=== PATIENT | male | born 1955 | race Caucasian/White ===

== ENCOUNTER 2017-11-11 12:45 | Day surgery (SDC) | payer OTHER ==
[~2017-11-11] VITALS: Ht 198.1 cm; Wt 115.7 kg
[~2017-11-11 12:45] MED LIST: ASPIR 8181 MG PO; ATORVASTATIN CA40 MG PO; CLARITIN10 M2 PO; FLOMAX0.4 MG PO; HYDROCODON-ACE1 EA10 PO; LEVOCETIRIZINE D5 MG PO; LEVOTHYROXINE50 MCG PO; LOVENOX40 MG SUB-Q; METOPROLOL SUCC25 MG PO; NORCO 5-325 TA1 EACH PO; OXYBUTYNIN CHLOR5 MG PO; SENNOSIDES-DOC1 EACH PO; TAMSULOSIN HCL0.4 MG PO; VITAMIN D1000 UNIT PO; VITAMIN D35000 UNI1 PO; VITAMIN D50000 UNI1 PO
--- NOTE | 2017-11-11 14:57 | NUR ---
11/11/17 1457 Peggy Mcmullen 1449- PT ARRIVES TO PACU, EASILY AROUSABLE TO VOICE. REPORTS NO PAIN OR NAUSEA. PT RIGHT BACK TO SLEEP.
--- NOTE | 2017-11-12 07:31 | OR ---
[facility] [address], [place] [address] Signed DATE OF OPERATION: 11/11/2017 SURGEON: Bartolo Lee MD PREOPERATIVE DIAGNOSES: 1. Colon screening. 2. Concurrent chronic hydrocephalus anticipating shunt. 3. Left rectus sheath desmoid tumor. 4. History of right nephrectomy for hypernephroma. POSTOPERATIVE DIAGNOSIS: Normal-appearing colon to cecum except for internal hemorrhoids (asymptomatic). PROCEDURE PERFORMED: Total colonoscopy to cecum. ANESTHESIA: Intravenous sedation, fentanyl 100 mcg, Versed 5 mg. INDICATION: This 62-year-old white man is a patient of Dr. Brady. He is here for colon screening. His last colonoscopy was in 2009 by me, which showed only mild proctitis. He is currently asymptomatic. Concurrently, he has been discovered to have chronic hydrocephalus for which a ventriculoperitoneal shunt is anticipated. He is due to see a neurosurgeon at [facility] in November. It is notable he underwent right nephrectomy for hypernephroma, which is considered likely stage I from information I have. He is known to have a dense mass of the left rectus sheath for which biopsies been undertaken by me, showing desmoid tumor and further consideration, its resection is anticipated. For now, he is here for a screening colonoscopy. He understands the risks of bleeding, infection, and perforation related to colonoscopy and wished to proceed. FINDINGS: The prep was excellent. Complete colonoscopy was undertaken of the cecum without problem. No sign of polyps, diverticular formation. He did have some internal hemorrhoids. DESCRIPTION OF PROCEDURE: Electronically Signed By: BARTOLO LEE MD 11/12/17 0731 PATIENT NAME: FLORI MATTHEWS OPERATIVE REPORT DATE OF : 55 REPORT #: [id number] PHYSICIAN: BARTOLO LEE MD PCP: COREY BRADY MD REPORT IS CONFIDENTIAL AND NOT TO BE RELEASED WITHOUT AUTHORIZATION [facility] [address], [place] [address] Signed The patient was brought to the endoscopy suite and placed in lateral decubitus position, given intravenous sedation to the point of slurred speech and nystagmus. Digital rectal examination was normal. The Olympus video colonoscope was passed in the rectum and manipulated throughout the colon, ultimately intubating the cecum. The ileocecal valve was well demonstrated as was the cecum. The scope was withdrawn from that point. Close examination throughout upon withdrawal of scope showed no sign of polyps, diverticular formation, colitis, or cancer. Retroflex view of the rectum showed internal hemorrhoidal changes, no sign of active bleeding, or problem at this time. Scope was straightened, withdrawn, and removed. The patient was taken to recovery in good condition. CONCLUDING DIAGNOSIS: Essentially normal colon except for internal hemorrhoids. PLAN: Recommend high-fiber diet. Repeat colonoscopy in 10 years or sooner if symptoms should develop. Maintain high-fiber diet on the basis of his hemorrhoids. Further consideration will be made for an MRI of the abdominal wall to better characterize the desmoid, anticipating possible resection. MD EUNICE Corey/BRENDAN /[id number] cc: Corey Brady MD Copies: COREY BRADY MD ~ Electronically Signed By: BARTOLO LEE MD 11/12/17 0731 PATIENT NAME: FLORI MATTHEWS OPERATIVE REPORT DATE OF : 55 REPORT #: [id number] PHYSICIAN: BARTOLO LEE MD PCP: COREY BRADY MD REPORT IS CONFIDENTIAL AND NOT TO BE RELEASED WITHOUT AUTHORIZATION
== END 2017-11-11 15:42 | disposition home or self-care (01) ==
LOC: OPS 12:45 → DS 12:45 → OPS 14:00 → DS 14:00 → OPS 15:42
PROVIDERS: Surgery
PROC: 0DJD8ZZ Inspection of Lower Intestinal Tract, Via Natural or Artificial Opening Endoscopic (ICD-10-PCS; principal; 2017-11-11 14:00)
DX: Z12.11 Encounter for screening for malignant neoplasm of colon (principal); K64.8 Other hemorrhoids; D48.1 Neoplasm of uncertain behavior of connective and other soft tissue; G91.9 Hydrocephalus, unspecified; E03.9 Hypothyroidism, unspecified; R41.3 Other amnesia; G47.30 Sleep apnea, unspecified; Z90.5 Acquired absence of kidney; Z85.528 Personal history of other malignant neoplasm of kidney; Z98.2 Presence of cerebrospinal fluid drainage device; Z99.89 Dependence on other enabling machines and devices
CPT/HCPCS: 99153; G0500; J2250; J3010; J7120

== ENCOUNTER 2020-08-11 10:51 | Day surgery (SDC) | payer MEDICARE, BC ==
[~2020-08-11] VITALS: Ht 198.1 cm; Wt 113.6 kg
--- NOTE | 2020-08-11 12:20 | NUR ---
08/11/20 1220 Minna Cano 1215-PT TO PACU IN LL POSITION. EYES CLOSED. RESPONDS TO VERBAL AND TACTILE STIMULI. BREATHING EASY AND UNLABORED. SPO2 >95% ON 4L O2 NC. PT DENIES PAIN AND NAUSEA AND FALLS EASILY BACK TO SLEEP.
--- NOTE | 2020-08-30 10:19 | PATH ---
[facility] [address] [facility] [place] [address] Signed THIS IS AN ADDENDUM REPORT SPECIMEN(S): C COMP FLOW CYTOMETRY, BM EDTA SPECIMEN(S): A BONE MARROW - CORE SPECIMEN(S): B BONE MARROW - ASPIRATION CLINICAL HISTORY: Bone marrow biopsy. 65-year-old male with anemia and lymphocytosis. Evaluate for CLL. 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 Peripheral blood - Lymphocytosis, absolute lymphocyte count 7,550/uL. - No peripheral blood smear is submitted for morphologic assessment. B. Bone marrow biopsy and aspiration: - Hypercellular marrow for age, 50%, with less than 1% blasts. - Trilineage hematopoiesis with no significant dyspoiesis. - CD5-positive B-cell lymphoproliferative disorder involving approximately 5% of marrow cellularity, consistent with CLL/SLL. - Normal to increased marrow iron stores by Prussian Blue stain. - See Diagnostic Comment. DIAGNOSTIC COMMENT: Clonal B-cells are identified consistent with CLL/SLL. 9% kappa restricted B-cells are identified by flow cytometry, whereas by morphology, approximately 5% clonal B-cells are identified. The observations and diagnosis in this case are those of Dr. Ren Renteria, hematopathologist. JLP:C1NR HISTORICAL SUMMARY: 65-year-old male with peripheral blood lymphocytosis and clinical concern for CLL.SLL. This bone marrow is for diagnosis. There is no prior hematologic history in [facility] or described in the accompanying history and physical. PERIPHERAL BLOOD: HEMOGRAM (08/11/2020): WBC 12.8 K/ul, RBC 4.68 M/ul, HGB 14.2 g/dl, HCT 43.7%, MCV 93.5 fl, MCH 30 pg, MCHC 32 g/dl, PLT 278 K/ul. Absolute lymphocyte count 7,550/ul. PATIENT NAME: FLORI MATTHEWS PATHOLOGY DATE OF : 55 REPORT #: [id number] PHYSICIAN: CARMEN BROWN PCP: MARIANO ROBBINS MD REPORT IS CONFIDENTIAL AND NOT TO BE RELEASED WITHOUT AUTHORIZATION [facility] [address] [place], [place] [address] Signed MANUAL DIFFERENTIAL COUNT: Neutrophils 31%, lymphocytes 59%, monocytes 7%, eosinophils 0%, basophils 1%. No peripheral blood smear is submitted for evaluation. BONE MARROW: ASPIRATE SMEARS/TOUCH IMPRINT: The aspirate smears are adequate for evaluation. Scattered erythroid precursors show adequate maturation with essentially normal morphology. The myeloid precursors show full maturation with unremarkable morphology. There is no increase in blasts. Megakaryocytes are identified with a normal morphology. BONE MARROW DIFFERENTIAL COUNT (300 cells): Blasts less than1%, promyelocytes 1%, myelocytes 5%, metamyelocytes/bands/segs 51%, erythroid precursors 26%, lymphocytes 10%, monocytes 2%, eosinophils 5%, plasma cells less than 1%. M:E ratio: 2.4:1 BONE MARROW CORE BIOPSY/ASPIRATE CLOT/CELL BLOCK: The aspirate clot section and the core biopsy are adequate for evaluation. The core biopsy demonstrates unremarkable trabecular bone. The cellularity is increased for age, estimated at 50%. The erythroid precursors are within normal limits with essentially unremarkable maturation. The myeloid precursors are unremarkable with no significant dyspoiesis. Blasts are not increased. Atypical lymphoid aggregates are noted occupying approximately 5-10% of the marrow cellularity. These lymphocytes are small and mature appearing. A panel of stains are performed to evaluate these lymphoid aggregates (results below). Megakaryocytes appear normal in number and in morphology. No granulomas or foreign malignant cells are detected. SPECIAL STAINS (with adequate controls): - iron (aspirate smear): Appears decreased but limited marrow spicules are present for evaluation. No ring sideroblasts are identified. - iron (aspirate clot): Normal to increased marrow iron stores by Prussian Blue stain. IMMUNOHISTOCHEMISTRY STAINS (performed on block A1 with adequate controls). - PAX5: 5% with strong marking in atypical aggregates. - CD3: 5%, no aggregates. - CD5 5% with similar marking as PAX5 - LEF1: 5% with similar marking as PAX 5 - CD23: 5% with similar marking as PAX5 - Cyclin D: Negative. - Ki-67: 2% in B-cell lymphoid area. PATIENT NAME: FLORI MATTHEWS PATHOLOGY DATE OF : 55 REPORT #: [id number] PHYSICIAN: CARMEN PATHOLOGY PCP: MARIANO ROBBINS MD REPORT IS CONFIDENTIAL AND NOT TO BE RELEASED WITHOUT AUTHORIZATION [facility] [address] [place], [place] [address] Signed FLOW CYTOMETRY: Bone marrow, flow cytometry: - CD5 positive, CD10 negative, kappa restricted B-cell lymphoproliferative disorder. - See Comment. COMMENT: 9% of all analyzed cells are kappa restricted B-cells. These B-cells are positive for CD19, CD20 (dim), CD5, and CD23 and are negative for CD10 and FMC-7. The principle differential diagnosis would include CLL/SLL. Correlation with bone marrow findings is required for confirmation. The analyzed T-cells are unremarkable. Blasts are not increased. The myeloid, monocyte, and plasma cell morgan are unremarkable. FLOW CYTOMETRY ANALYSIS: FLOW DIFFERENTIAL (% Total CD45 vs. SSC gating): Myeloid 74%; Lymphoid 18%; Monocyte 3%; Dim CD45/Blast: 1%. Cell Count: 3.7 x 10*3/uL. POPULATION ANALYSIS: BLASTS: Analysis of the dim CD45 gate demonstrates 1% myeloblasts by CD34/CD117. LYMPHOID CELLS: The lymphocyte gate comprises 18% of total events and includes 32% T-cells with a CD4:CD8 ratio of 2.4:1 and normal michaels T-cell antigen expression. 54% of lymphocytes are B-cells. A kappa-restricted B-cell population is detected (48% of lymphocytes, 9% of total events) expressing CD45 DIM-MOD, CD19 DIM, CD20 DIM, CD5 DIM, CD23 DIM, surface KAPPA DIM-NEG and cytoplasmic KAPPA MOD (variable) while negative for CD10, CD38 and FMC7.. The remainders are NK-cells. MYELOID CELLS: The myeloid population comprises 74% of the total events. No aberrant or immature immunophenotypic expression is detected. MONOCYTES: The monocyte population comprises 3% of the total events. Monocytes are not increased. No aberrant immunophenotypic expression is detected. PLASMA CELLS: 0.1% plasma cells are detected in the screening gate neg-dimCD45/CD38. Plasma cells are CD45 dim and positive for CD19. Initial Antibodies Used: KAPPA, LAMBDA, CD20, CD10, CD19, CD23, CD38, FMC7, CD16, CD56, CD8, CD5, CD2, CD4, CD7, CD3, CD14, CD33, CD13, HLADR, CD34, CD117, CD15, CD45. Additional Antibodies (necessary for further classification of B lymphocytes): ckappa, clambda. Total Antibodies Used: 26. PATIENT NAME: FLORI MATTHEWS PATHOLOGY DATE OF : 55 REPORT #: [id number] PHYSICIAN: CARMEN PATHOLOGY PCP: MARIANO ROBBINS MD REPORT IS CONFIDENTIAL AND NOT TO BE RELEASED WITHOUT AUTHORIZATION [facility] [address] [place], [place] [address] Signed TCS FINAL DIAGNOSIS PERFORMED BY: Ren Renteria MD, Aug 12 2020 3:44PM CYTOGENETICS: Chromosome analysis is requested and the results will be reported in an addendum. FISH ANALYSIS: A FISH panel for CLL is requested and the results will be reported in an addendum. MOLECULAR / PCR: Mutation analysis for IGVH is requested and the results will be reported in an addendum. GROSS DESCRIPTION: Two specimens are received in two containers, labeled "CW." A. The specimen, labeled "CW, core," is received in formalin and consists of three velazquez-red, cylindrical bone core fragments measuring 0.2- 0.3 cm in diameter and ranging 0.6-1.7 cm in length. The specimen is entirely submitted in cassette (A1) following decalcification in Immunocal. B. The specimen, labeled "CW, clot," is received in formalin and consists of thickened clot material measuring 1.6 x 1.6 x 0.4 cm in aggregate. The specimen is filtered and entirely submitted in cassette (B1). Bone marrow inventory also includes: One EDTA tube bone marrow, two heparin tubes. AT (under the direct supervision of a pathologist) The Gross Description was prepared using a voice recognition system. The report was reviewed for accuracy; however, sound-alike word errors, addition and/or deletions may occur. If there is any question about this report, please contact Client Services. ADDITIONAL NOTES: This test was developed and its performance characteristics determined by [facility]. It has not been cleared or approved by the US Food and Drug Administration. The FDA does not require this test to go through premarket FDA review. This test is used for clinical purposes. It should not be regarded as investigational or for research. This laboratory is certified under the Clinical PATIENT NAME: FLORI MATTHEWS PATHOLOGY DATE OF : 55 REPORT #: [id number] PHYSICIAN: CARMEN BROWN PCP: MARIANO ROBBINS MD REPORT IS CONFIDENTIAL AND NOT TO BE RELEASED WITHOUT AUTHORIZATION [address] [address] Signed Laboratory Improvement Amendments (CLIA) as qualified to perform high complexity clinical laboratory testing. Immunohistochemical and/or in situ hybridization studies were performed on this case with the appropriate positive controls that react as expected. This test was developed and its performance characteristics determined by [facility]. It has not been cleared or approved by the U.S. Food and Drug Administration. The FDA has determined that such clearance or approval is not necessary. This test is used for clinical purposes. It should not be regarded as investigational or for research. [facility] is certified under the Clinical Laboratory Improvement Amendments of 1988 (CLIA) as qualified to perform high complexity clinical laboratory testing. This assay has not been validated for specimens that have been decalcified. In this case, certain antibodies were performed by both immunohistochemistry and flow cytometry analysis because flow cytometry analysis did not fully explain all the light microscopic findings. Immunohistochemistry aided in the analysis. Both methods are deemed medically necessary in this case. PERFORMING LABORATORY: The technical component was performed by [facility], [address] [place] [address] (Executive Communications Manager: Damien Kuo D.O.; CLIA#: [id number]). Professional [place] [address] A portion of the technical component was performed by [facility], [address] [place] [address] (Executive Communications Manager: Zohra Garcia MD; CLIA# [id number]). A portion of the technical component was performed by [facility], [address] [place] [address] (Executive Communications Manager: Damien Kuo D.O.; CLIA#: [id number]). Professional [place] [address]. IMAGES: A: [id number] A: [id number] REASON FOR ADDENDUM: To add results of additional testing. PATIENT NAME: FLROI MATTHEWS PATHOLOGY DATE OF : 55 REPORT #: [id number] PHYSICIAN: CARMEN PATHOLOGY PCP: MARIANO ROBBINS MD REPORT IS CONFIDENTIAL AND NOT TO BE RELEASED WITHOUT AUTHORIZATION [facility] [address] [place] [address] Signed Peripheral blood, IgVH mypermutation analysis: Results: IgVH Hypermutation Analysis: Hypermutated - V Region: IGHV3-7*03 - % Difference: 8.0 - Prognostic Association in CLL: Favorable Clinical Significance: Immunoglobulin heavy chain gene variable region (IgVH) somatic mutation status provides important prognostic information for patients with chronic lymphocytic leukemia (CLL), small lymphocytic lymphoma (SLL), and mantle cell lymphoma (MCL). In studies (1,2,3), median survival for patients with CLL/SLL unmutated IgHV region gene was 6-9 years whereas median survival for patients with hypermutated IgHV region was 13-24 years. Mutated MCL patients have a better outcome compared to unmutated IGHV patients, with 5-year overall survival (OS) of 59% and 40%, respectively. This reverse transcriptase polymerase chain reaction (RT-PCR) assay is based on detection of identical IgH genes present in clonal B lymphocyte populations present in a blood or bone marrow specimen taken from a patient with confirmed lymphoma. Both PCR mixes contains consensus oligonucleotide primer sets specific for the upstream leader (L) or framework 1 (FR1) regions, and the downstream joining (J) region of the IgH gene on chromosome 14. The amplified IgH variable (V) region is then sequenced. This test will detect the majority of clonal IgVH rearrangements when using expressed RNA as the starting template. Clonal products are detected by capillary electrophoresis. Methodology: Patient RNA is isolated and subjected to RT-PCR using two independent multiplex reactions. Each reaction contains consensus oligonucleotide primer sets specific for the upstream leader (L) or framework 1 (FR1) regions, and the downstream joining (J) region of the IgH gene on chromosome 14. PCR products are resolved using high resolution capillary electrophoresis to confirm clonality. The DNA nucleotide sequence of the IgH V region is derived and compared to standard germline sequence families contained in the [employer] IgBLAST database. The number of mutations in the patient's IgH V region clone is expressed as a percentage in comparison to the closest matching IgH family sequence. PATIENT NAME: FLORI MATTHEWS PATHOLOGY DATE OF : 55 REPORT #: [id number] PHYSICIAN: CARMEN BROWN PCP: MARIANO ROBBINS MD REPORT IS CONFIDENTIAL AND NOT TO BE RELEASED WITHOUT AUTHORIZATION [facility] [address] [place], [place] [address] Signed The limit of detection determined by RNA mixing tests is 10% clonal RNA in a polyclonal RNA background. This means that in patient specimens containing less than 10% clonal B cells, we may be unable to obtain adequate PCR product or sequencing signal. PCR may fail due to inadequate oligonucleotide primer hybridization caused by unpredicted mutations which may occur in the targeted primer binding sites. Results of molecular testing should be interpreted in the context of clinical, histological and immunophenotypic data. References: 1. Zbigniew et al. Unmutated IgV(H) genes are associated with a more aggressive form of chronic lymphocytic leukemia. Blood (1998) 94, 5287-1308. 2. Fany et al IgV gene mutation status and CD38 expression as novel prognostic indicators in chronic lymphocytic leukemia. Blood (1998) 94, 6655-4167. 3. Amrit et al. Routine Analysis of IgVH mutational status in CLL patients using BIOMED-2 standardized primers and protocols. Leukemia Lymphoma, (2004) 45(9), 4304-8224. 4. Eileen et al V(H) mutation status, CD38 expression level, genomic aberrations, and survival in chronic lymphocytic leukaemia. Blood (2002) 100, 5809-6024. 5. Matthew E, Abimael S, Douglas G, et al. Use of IGHV3-21 in chronic lymphocytic leukemia is associated with high-risk disease and reflects antigen-driven, post-germinal center leukemogenic selection. Blood 2008;111:1557-0159. Test/Panel: IgVH Hypermutation Analysis MolDX CPT: 78201 AMA CPT: 38251 The Technical Component Processing, Analysis and Professional Component of this test was completed at [facility], [address] [place] [address] / [address] / [phone] / CLIA #[id number] / Executive Communications Manager(s): Peng Atwood M.D. (Accession/CaseNo: [id number]) The performance characteristics of this test have been determined by [facility]. This test has not been approved by the FDA. The FDA has determined such clearance or approval is not necessary. This laboratory is CLIA certified to perform high complexity clinical testing. Images that may be included within this report are fuels sales representative of the patient but not all testing in its entirety and should not be used to render a result. PATIENT NAME: FLORI MATTHEWS PATHOLOGY DATE OF : 55 REPORT #: [id number] PHYSICIAN: CARMEN PATHOLOGY PCP: MARIANO ROBBINS MD REPORT IS CONFIDENTIAL AND NOT TO BE RELEASED WITHOUT AUTHORIZATION [address] [place] [address] Signed The CPT codes provided with our test descriptions are based on MolDX and AMA guidelines and are for informational purposes only. Correct CPT coding is the sole responsibility of the billing republican. Please direct any questions regarding coding to the payer being billed. To add results of additional testing. Bone marrow aspirate, CLL FISH analysis: Results: Not Detected Interpretation: 6q deletion: Not detected Trisomy 12: Not detected 13q deletion/monosomy 13: Not detected ANASTASIA (11q22) deletion: Not detected p53 (17p13) deletion: Not detected CCND1/IgH rearrangement t(11;14): Not detected Fluorescence in situ hybridization (FISH) analysis was performed using a Chronic Lymphocytic Leukemia (CLL) specific set of probes. Normal results were observed with the 6, 11 (CCND1), 11 (ANASTASIA), 12, 13q34, 14 (IgH), and 17 (TP53) probe sets. No evidence of 6q, 11q (ANASTASIA), 13q, or 17p (p53) deletion, trisomy 12, or CCND1/IgH rearrangement is detected. Probe Set Detail: 6q-: nuc anika(SEC63,MYB)x2[200] Chromosomes 12 13: nuc anika(CEN12,DLEU12,LAMP1)x2[200] Chromosomes 11 17: nuc anika(ANASTASIA,TP53)x2[200] CCND1/IgH t(11;14): nuc anika(CCND1,IGH)x2[200] Nuclei Scored: 200 Probe set: 6q-, Chromosomes 12 13*, Chromosomes 11 17*, CCND1/IgH t(11;14) Scoring method: Computer [employer] CPT code: 98315 # of units: Electronic Signature Daysi Jimenez M.D., Hematopathologist All controls were within expected ranges. The Technical Component Processing of this test was completed at [facility], [address] [place] [address] / [address] / [phone] / CLIA #[id number] / Executive Communications Manager(s): Cynthia Joseph M.D. The Technical Component Analysis of this test was completed at [facility], [address] [place] [address] / [address] / [phone] / CLIA # [id number] / Executive Communications Manager(s): Antonio Lee M.D. (Accession/CaseNo: [id number]) The Professional Component of this test was completed at [facility] - PATIENT NAME: FLORI MATTHEWS PATHOLOGY DATE OF : 55 REPORT #: [id number] PHYSICIAN: CARMEN BROWN PCP: MARIANO ROBBINS MD REPORT IS CONFIDENTIAL AND NOT TO BE RELEASED WITHOUT AUTHORIZATION [facility] [address] [place] [address] Signed Jennifer Ahuja, MAGGIE Ahuja [id number] / / . [facility] FISH test uses either FDA cleared and/or analyte specific reagent (ASR) probes. This test was developed and its performance characteristics determined by [facility] in [place], [place]. It has not been cleared or approved by the U.S. Food and Drug Administration (FDA). The FDA has determined that such clearance or approval is not necessary. This test is used for clinical purposes and should not be regarded as investigational or for research. This laboratory is regulated under CLIA '88 as qualified to perform high complexity testing. Interphase FISH does not include examination of the entire chromosomal complement. Clinically significant anomalies detectable by routine banded cytogenetic analysis may still be present. Consider reflex banded cytogenetic analysis. Images that may be included within this report are fuels sales representative of the patient but not all testing in its entirety and should not be used to render a result. The CPT codes provided with our test descriptions are based on AMA guidelines and are for informational purposes only. Correct CPT coding is the sole responsibility of the billing republican. Please direct any questions regarding coding to the payer being billed. To add results of additional testing. Bone marrow aspirate, chromosome analysis: Karyotype: 46,XY[20] Interpretation: NORMAL MALE KARYOTYPE Cytogenetic analysis shows a normal male karyotype in all cells analyzed. Comments: Standard cytogenetic analysis may not detect subtle submicroscopic rearrangements and may not include metaphases from abnormal cell populations with low mitotic rates or present in low levels. Test Detail: Metaphases Counted: 20 Metaphases Analyzed: 20 Metaphases Karyotyped: 2 Culture Type: 48EB, 72IL2/DSP30 Banding Technique: GTG Banding Resolution: 400 PATIENT NAME: FLORI MATTHEWS PATHOLOGY DATE OF : 55 REPORT #: [id number] PHYSICIAN: CARMEN PATHOLOGY PCP: MARIANO ROBBINS MD REPORT IS CONFIDENTIAL AND NOT TO BE RELEASED WITHOUT AUTHORIZATION [address] [address] Signed CPT Codes: 81757, 54111*, 51156, 07453 *Professional interpretation service generally billed directly to carriers by [facility]. Two cultures were performed; stimulated and non-stimulated. The Technical Component Processing and Analysis of this test was completed at [facility] [place], [address] [place] [address] / [address] / [phone] / CLIA #[id number] / Executive Communications Manager(s): Cynthia Joseph M.D. The Professional Component of this test was completed at [facility], [address] [place] [address] / [address] / [phone] / CLIA# [id number] / Executive Communications Manager(s): Salvador Low, Ph.D. (Accession/CaseNo: [id number]) The performance characteristics of this test have been determined by the performing laboratory. This test has not been approved by the FDA. The FDA has determined such clearance or approval is not necessary. This laboratory is CLIA certified to perform high complexity clinical testing. Images that may be included within this report are fuels sales representative of the patient but not all testing in its entirety and should not be used to render a result. The CPT codes provided with our test descriptions are based on AMA guidelines and are for informational purposes only. Correct CPT coding is the sole responsibility of the billing republican. Please direct any questions regarding coding to the payer being billed. Diagnostician: Elida Carreno MD Pathologist Diagnostician: Ren Renteria MD Pathologist Electronically Signed 08/30/2020 Copies: ~ PATIENT NAME: FLORI MATTHEWS PATHOLOGY DATE OF : 55 REPORT #: [id number] PHYSICIAN: CARMEN BROWN PCP: MARIANO ROBBINS MD REPORT IS CONFIDENTIAL AND NOT TO BE RELEASED WITHOUT AUTHORIZATION
== END 2020-08-11 12:50 | disposition home or self-care (01) ==
LOC: DS 10:51 → OPS 10:51 → DS 12:00 → OPS 12:00
PROVIDERS: ATTEND Specialist
PROC: 079T3ZX Drainage of Bone Marrow, Percutaneous Approach, Diagnostic (ICD-10-PCS; 2020-08-11)
PROC: 07DR3ZX Extraction of Iliac Bone Marrow, Percutaneous Approach, Diagnostic (ICD-10-PCS; principal; 2020-08-11 12:00)
DX: C91.10 Chronic lymphocytic leukemia of B-cell type not having achieved remission (principal); N18.31 Chronic kidney disease, stage 3a
CPT/HCPCS: 80053; 82232; 83615; 85025; 88184; 88185; 88305; 88311; 88313; 88341; 88342; 88360; G0500; J2250; J3010